=== PATIENT | female | born 2000 | race Two or more races ===

== ENCOUNTER 2023-08-04 18:22 | Emergency (ER) | payer SELFPAY ==
[~2023-08-04] VITALS: Ht 170.2 cm; Wt 68.5 kg
[2023-08-04] MEDS: IV NS 0.9% 1,000 ML BAG IV ONE (19:07)
[2023-08-04 19:10] LABS: APPEARANCE,URINE SLIGHTLY CLOUDY (CLEAR); BILIRUBIN,URINE NEGATIVE (NEGATIVE); BLOOD, URINE NEGATIVE Ery/uL (NEGATIVE); COLOR,URINE YELLOW (YELLOW); KETONES,URINE NEGATIVE (NEGATIVE); LEUKOCYTE ESTERASE ,URINE NEGATIVE (NEGATIVE); NITRITE, URINE NEGATIVE (NEGATIVE); PROTEIN,URINE NEGATIVE (NEGATIVE); UGLUCOSE NEGATIVE (NEGATIVE); UROBILINOGEN,URINE 0.2 EU/dL (0.2)
[2023-08-04 19:18] LABS: PREGNANCY TEST URINE QUAL NEGATIVE (NEGATIVE)
[2023-08-04 19:19] LABS: ADD URINE CULTURE YES; BACTERIA,URINE 3+ /HPF (None Seen); MUCUS,URINE Few /LPF (None Seen); RBC,URINE 0-2 /HPF (0-2); SQUAMOUS EPITHELIAL CELL,UR 21-50 /HPF (None Seen); WBC,URINE 0-2 /HPF (0-3)
[2023-08-04 19:27] LABS: AMPHETAMINE, URINE NEGATIVE (NEGATIVE); BARBITURATE, URINE NEGATIVE (NEGATIVE); BENZODIAZEPINE, URINE NEGATIVE (NEGATIVE); CANNABINOID, URINE POSITIVE (NEGATIVE); COCCAINE, URINE NEGATIVE (NEGATIVE); OPIATE, URINE NEGATIVE (NEGATIVE); PHENCYCLIDINE SCREEN,URINE NEGATIVE (NEGATIVE)
[2023-08-04 20:18] VITALS: BP 105/80; TEMP 98.7; O2SAT 99
== END 2023-08-04 20:18 | disposition home or self-care (01) ==
LOC: ER 19:43
DX: H50.9 Unspecified strabismus (principal); R10.2 Pelvic and perineal pain
CPT/HCPCS: 81001; 84703-TC; 87086-TC